=== PATIENT | male | born 1975 | race Caucasian/White ===

== ENCOUNTER 2018-12-08 10:29 | Day surgery (SDC) | payer OTHER ==
[2018-12-08 11:21] LABS: ADD MAN DIFF? NO
[2018-12-08 11:25] LABS: WHITE BLOOD COUNT 9.5 10^3/ul (4.8-10.8)
[2018-12-08 11:25] LABS: BASOPHILS % 0.2 % (0.0-2.0); EOSINOPHILS % 0.3 % (0.0-7.0); HEMOGLOBIN 12.8 g/dl (14.0-18.0); LYMPHOCYTES # 1.8 10^3/ul (0.8-2.9); LYMPHOCYTES % 19.3 % (15.0-51.0); MEAN CORPUSCULAR HEMOGLOBIN 28.5 pg (29.0-33.0); MEAN CORPUSCULAR VOLUME 89.1 fl (82.0-101.0); MEAN PLATELET VOLUME 10.1 fl (7.4-10.4); MONOCYTE # 0.6 10^3/ul (0.3-0.9); MONOCYTES % 6.3 % (0.0-11.0); NEUTROPHILS % 73.7 % (39.0-77.0); PLATELET COUNT 255 10^3/UL (140-415); RED BLOOD COUNT 4.49 10^6/ul (4.70-6.10); RED CELL DISTRIBUTION WIDTH 12.9 % (11.5-14.5)
[2018-12-08 11:41] LABS: ADD UMIC YES; ALANINE AMINOTRANSFERASE 18 IU/L (13-69); ALBUMIN 4.5 g/dl (3.3-4.9); ALKALINE PHOSPHATASE 81 IU/L (42-121); ANION GAP 11 (5-13); ASPARTATE AMINO TRANSFERASE 21 IU/L (15-46); BILIRUBIN,INDIRECT 0.2 mg/dl (0-1.1); BILIRUBIN,TOTAL 0.2 mg/dl (0.2-1.3); CALCIUM 9.5 mg/dl (8.4-10.2); CARBON DIOXIDE 26 mmol/L (21-31); CHLORIDE 103 mmol/L (97-110); CREATININE 0.85 mg/dl (0.61-1.24); Estimated GFR > 60 mL/min (>60); GLUCOSE 108 mg/dl (70-220); POTASSIUM 4.4 mmol/L (3.5-5.1); SODIUM 140 mmol/L (135-144); TOTAL PROTEIN 7.7 g/dl (6.1-8.1); UR ASCORBIC ACID NEGATIVE (NEGATIVE); UR BACTERIA FEW /HPF (NONE SEEN); UR BILIRUBIN (Dip) NEGATIVE (NEGATIVE); UR BLOOD (Dip) NEGATIVE (NEGATIVE); UR CLARITY CLEAR (CLEAR); UR COLOR YELLOW (YELLOW); UR GLUCOSE (Dip) NEGATIVE (NEGATIVE); UR KETONES (Dip) NEGATIVE (NEGATIVE); UR LEUKOCYTE ESTERASE (Dip) 1+ Leu/ul (NEGATIVE); UR MUCUS FEW /HPF (NONE SEEN); UR NITRITE (Dip) NEGATIVE (NEGATIVE); UR RBC 2 /HPF (0-5); UR SPECIFIC GRAVITY (Dip) 1.026 (1.003-1.030); UR TOTAL PROTEIN (Dip) NEGATIVE (NEGATIVE); UR UROBILINOGEN (Dip) NEGATIVE (NEGATIVE); UR WBC 8 /HPF (0-5)
[2018-12-08 11:43] LABS: INR 0.82; PROTIME 11.4 Sec (11.9-14.9); PT RATIO 0.9
[2018-12-08 11:44] LABS: BLOOD UREA NITROGEN 21 mg/dl (7-20); PARTIAL THROMBOPLASTIN TIME 26.6 Sec (23.0-35.0)
[2018-12-08] MEDS ORDERED: MEPERIDINE 25 MG INJ IV (12:00)
[2018-12-08] MEDS ORDERED: ALBUTEROL 0.083% (NEB) 2.5 MG/3 ML AMP HHN (12:00)
[2018-12-08] MEDS ORDERED: METOCLOPRAMIDE 10 MG INJ IV (12:00)
[2018-12-08] MEDS ORDERED: LEVALBUTEROL (NEB) 0.63 MG/3 ML AMP HHN (12:00)
[2018-12-08] MEDS ORDERED: IPRATROPIUM (NEB) 0.5 MG/2.5 ML AMP HHN (12:00)
[2018-12-08] MEDS ORDERED: HYDROmorphONE 1 MG/5 ML IV SYRINGE IV (12:00)
[2018-12-08] MEDS ORDERED: DIPHENHYDRAMINE 50 MG INJ IV (12:00)
[2018-12-08] MEDS ORDERED: FENTAnyl 50 MCG/ML VIAL IV (12:00)
[2018-12-08] MEDS ORDERED: ONDANSETRON 4 MG INJ IV (12:00)
[2018-12-08] MEDS: RACEPINEPHRINE 2.25%(NEB) 0.5 ML AMP HHN (12:00)
[2018-12-08] MEDS: BUPIVACAINE 0.25% (MPF) 30 ML INJ (12:48)
[2018-12-08] MEDS: NEOMYC/POLYMYX/BACIT 30 GM OINT (13:30)
[2018-12-08] MEDS ORDERED: HYDROCODONE/APAP (5/325) TAB PO (14:00)
[2018-12-08] MEDS: HYDROmorphONE 1 MG/5 ML IV SYRINGE IV ×2 (14:07→14:17)
[2018-12-08] MEDS: FENTAnyl 50 MCG/ML VIAL IV (14:41)
== END 2018-12-08 15:45 | disposition home or self-care (01) ==
LOC: SDS 15:45
DX: N43.3 Hydrocele, unspecified (principal); J45.909 Unspecified asthma, uncomplicated
CPT/HCPCS: 55040; 71045; 80053; 81001; 85025; 85610; 85730; 88304; 93005